=== PATIENT | female | born 1975 | race Caucasian/White ===

== ENCOUNTER 2021-07-13 17:25 | Emergency (ER) | payer SELFPAY ==
[2021-07-13] MEDS ORDERED: Ibuprofen 800 MG TAB ONE (19:29)
[2021-07-13] MEDS ORDERED: traMADol HCl 50 MG TAB ONE (19:29)
[2021-07-13] MEDS ORDERED: Dexamethasone 4 MG TAB ONE (20:36)
[2021-07-14 13:26] LABS: SARS-CoV-2 PCR by NAA DETECTED (NotDetected)
== END 2021-07-13 20:33 | disposition home or self-care (01) ==
LOC: BURERS 17:25
DX: U07.1 COVID-19 (principal); F17.210 Nicotine dependence, cigarettes, uncomplicated
CPT/HCPCS: 71045; 87804; 94640; J7620; J8540; U0003; U0005